=== PATIENT | female | born 1965 | race Caucasian/White ===

== ENCOUNTER 2019-04-09 10:12 | Inpatient (IN) ==
[2019-04-09] MEDS ORDERED: ACETAMINOPHEN 325 MG TAB PO PRN (12:55)
[2019-04-09] MEDS ORDERED: ONDANSETRON INJ 2 MG/ML 2 ML VIAL IV PRN ×2 (12:55→16:47)
--- NOTE | 2019-04-09 13:36 | History & Physical Report ---
Date of Service April 09, 2019 Assessment & Plan (1) Solitary right kidney: (2) ARSH (acute kidney injury): (3) Hydronephrosis: (4) UTI (urinary tract infection): -Admit to medsurg with tele secondary to sepsis described by OSH, if afebrile then can take off tele -Ceftriaxone IV, Received dose x 1 already today, continue -Pt reports multiple UTIs recently, I do not have access to records of culture results/sensitivities at this time -rechecking creatinine, OSH labs creatinine = 1.6 -Follow urine culture from OSH -Repeat blood cultures x2, follow from OSH -Urology consulted, spoke with Dr. Dong who plans to place a stent this evening -N.p.o. until after procedure -LR at 125 ml/hr -HIM consulted for CT abd/pelvis imaging results from OSH as this was not sent with records. Avoid repeating CT for now. -Will order renal U/S to eval hydronephrosis with solo kidney -Pain control with tylenol, morphine. No NSAIDs. (5) DVT prophylaxis: teds, scds, ambulatory. History of Present Illness Primary Care Provider: Elliot Shrestha This is a 54 yo F with PMHx of single kidney s/p transplant donation, multiple urinary tract infections with 5 since last fall. She presents from [facility] as a direct admission. The patient presented to OSH after acute left-sided flank pain, nausea, vomiting, headache, increased urinary frequency, burning and faint hematuria which has been going on for 2 days. She reports not having taken her temperature. Cr. is elevated at 1.6, UA with positive nitrate, positive leukocyte esterase, WBC 50-100, bacteria moderate on UA. Patient has urinated one time today. She has not eaten anything since 0300. Patient received 1 dose of IV ceftriaxone at OSH. Past Med/Surg History Medical History Solitary right kidney ARSH (acute kidney injury) UTI (urinary tract infection) Hydronephrosis Surgical History History of left nephrectomy Family History Mother , of [place]. Heart disease Hypertension Brother Nephrolithiasis Social History Preferred Language: Senegalese Communication Ability: Effective Beliefs That Will Affect Care: None Current Living Situation: Spouse Other Information That Helps Us Care for You: No Feels Safe at Home: Yes Safety Concerns: Feels Safe At This Time Smoking Status: Never smoker Hx Alcohol Use: No Hx Substance Use: No Review of Systems Review of Systems: Constitutional: + Subjective fever, sweats and chills, MCKEON Eyes: No diplopia, no worsening or blurred vision ENT: normal hearing, no trouble swallowing Respiratory: No cough, sputum, dyspnea at rest or on exertion Cardiovascular: No chest pain, tightness or palpitations Abdomen: + LLQ pain with palpation, no nausea, vomiting, diarrhea or constipation Musculoskeletal: No joint pain, calf pain, swelling Neurologic: No weakness, numbness/tingling, or balance problems Psychiatric: No anxiety or depression Skin: No rash or itch Physical Exam Physical Exam: General: awake, alert, no apparent distress Head: Normocephalic, atraumatic ENT: PERRL, EOMI, no pharyngeal exudate, mucous membranes moist Chest: Clear to auscultation, on room air, no adventitious breath sounds Cardiac: Regular rate and rhythm, no murmur, no JVD, normal peripheral pulses, good capillary refill Abdominal: NABS x 4 quadrants, soft, nondistended, no CVA tenderness, Mild +tenderness to palpation in the LLQ, no rebound, guarding or tenderness Extremities: Normal inspection, no peripheral edema or erythema, calfs nontender to palpation Psych: Normal mood and affect Neuro: AAO x 3, strength intact bilaterally and related 5/5, no motor deficits, speech is clear, no peripheral sensory deficits Code Status & VTE Plan Code Status Full Code Supervising Physician Co-Signing Physician Notes The patient was seen and examined by me and I agree with the assessment and plan done by Pastora Pickens PA-C. The patient is hemodynamically stable and does not appear septic at this time. Urology has been contacted and she will have intervention later today. Lungs are clear, heart rhythm is regular, abdomen is benign. She is alert and oriented x3 in no acute distress.
[2019-04-09] MEDS ORDERED: MoRPHine SULFATE 4 MG/ML 1 ML CARP\\VIAL IV PRN (13:38)
[2019-04-09] MEDS ORDERED: MoRPHine SULFATE 4 MG/ML 1 ML CARP\\VIAL IV STA (13:38)
[2019-04-09] MEDS ORDERED: cefTRIAXone SODIUM 1,000 MG in DEXTROSE 5% 50 ML IV SCH (13:45)
[2019-04-09 14:01] LABS: Hemoglobin 12.4 g/dL (12.0-16.0); Mean Corpuscular Hgb Conc 35.4 g/dL (32-36); Mean Platelet Volume 9.9 fL (7.4-10.4); Platelet Count 192 K/uL (130-400); RDW Coefficient of Variation 13.6 % (11.5-14.5); RDW Standard Deviation 42.9 fL (36.4-46.3); Red Blood Count 4.07 M/uL (4.2-5.4); White Blood Count 9.88 K/uL (4.8-10.8)
[2019-04-09] MEDS: LACTATED RINGER'S 1,000 ML IV SCH ×2 (14:20→21:00)
[2019-04-09 14:23] LABS: Basophils # (auto) 0.01 K/uL (0-0.2); Basophils % (auto) 0.1 %; Immature Granulocytes # (auto) 0.02 K/uL (0.00-0.02); Immature Granulocytes % (auto) 0.2 %; Monocytes # (auto) 0.62 K/uL (0.11-0.59); Monocytes % (auto) 6.3 %; Neutrophils # (auto) 8.83 K/uL (1.4-6.5); Neutrophils % (auto) 89.4 %
[2019-04-09 14:30] LABS: Albumin Level 3.3 gm/dl (3.4-5.0); BUN Creatinine Ratio 11.2 (10-20); Calcium 8.9 mg/dl (8.5-10.1); Creatinine Clr Calc Pharmacy 56.2 ml/min; Est GFR (African American) 54.2; Est GFR (Non-African American) 46.8; Potassium 3.6 mmol/L (3.5-5.1)
[2019-04-09 14:33] LABS: Albumin Globulin Ratio 0.9 (0.9-2); Bilirubin,Total 0.7 mg/dl (0.2-1); Globulin 3.7 gm/dl (2.5-4.0)
[2019-04-09] MEDS ORDERED: cefTRIAXone SODIUM 2,000 MG in DEXTROSE 5% 50 ML IV SCH (15:00)
[2019-04-09] MEDS ORDERED: IOTHALAMATE MEGLUMINE II 17.2% 250 ML VIAL ONE (15:48)
--- NOTE | 2019-04-09 16:13 | Anesthesiology Consultation ---
Date of Service April 09, 2019 Assessment & Plan (1) Encounter for pre-operative examination: Chart Review Chart Review: Acceptable Risk for Surgery and Patient NOT seen in Pre Admission Testing Consults Requested none ASA [id number] Proposed Anesthesia Anesthesia Type: General Risk / Benefits Reviewed With: PT / POA / Parent / Guardian, Accepts Plan and In formed Consent Obtained History Surgery Operation Date: 04/09/19 13:00 Proposed Procedures p Cystoscopy, Right Ureteroscopy, Laser Lithotripsy, Stent Placement - Claudio Dong MD Height/Weight Height: 5 ft 8 in Weight: 82 kg Allergies Allergy/AdvReac Type Severity Reaction Status Date / Time No Known Allergies Allergy Unverified 04/09/19 14:55 Medications Active Medications Generic Name Dose Route Start Last Admin Trade Name Freq PRN Reason Stop Dose Admin Lactated Ringer's 1,000 mls @ 125 mls/hr 04/09/19 13:00 04/09/19 14:20 Lr IV 05/09/19 12:59 125 mls/hr .Q8H JOE Administration Ondansetron HCl 4 mg 04/09/19 12:55 04/09/19 15:29 Zofran IV 05/09/19 12:54 4 mg Q4H PRN Administration Nausea And Vomiting NPO Date Last Intake of Fluids: 04/09/19 Time Last Intake of Fluids: 04:00 Date Last Intake of Solids: 04/09/19 Time Last Intake of Solids: 04:00 Past Medical History Medical History Solitary right kidney ARSH (acute kidney injury) UTI (urinary tract infection) Hydronephrosis Exercise / Class Metabolic Activity II 4-5 Yardwork/Stairs/Walk up hill Negative for chest pain or shortness of breath. Past Family History Family History Mother , of [place]. Heart disease Hypertension Brother Nephrolithiasis Past Surgical History Surgical History History of left nephrectomy Past Anesthesia History No Hx of Anesthesia Complications History of PONV No Hx of Motion Sickness and History of PONV Social History Smoking Status: Never smoker Hx Alcohol Use: No Hx Substance Use: No Review of Systems Patient denies active symptoms of GERD. Dry heaves early this morning - no vomiting. No nausea currently. Physical Exam Vital Signs Last Vital Signs Temp 37.3 C 04/09/19 16:07 Pulse 73 04/09/19 16:07 Resp 16 04/09/19 16:07 BP 123/75 04/09/19 16:07 Pulse Ox 96 04/09/19 16:07 Constitutional not obese ENMT Mouth: no TMJ abnormality and oral opening not small Thyromental Distance: > or= 3.5 Finger Breadths Mallampati Class: I Neck normal visual inspection; neck extension not limited Respiratory normal respiratory effort Auscultation: lungs clear to auscultation bilaterally Cardiovascular Rate/Rhythm: regular rate and regular rhythm Heart Sounds: no murmur Neurologic moves all extremities Motor/Sensory: no sensory deficit Psychiatric Orientation: alert and oriented x 3 Testing Laboratory Results 04/09/19 13:28 04/09/19 13:45 Electrocardiogram Date: 04/09/19 Findings: + NSR @ (68)
[2019-04-09] MEDS ORDERED: MIDAZOLAM HCL 1 MG/ML 2ML VIAL ONE (16:27)
[2019-04-09] MEDS ORDERED: fentaNYL citrate 100 MCG/2 ML VIAL ONE (16:28)
[2019-04-09] MEDS ORDERED: ATROPINE SULFATE 0.1 MG/ML 10ML SYR IV PRN (16:47)
[2019-04-09] MEDS ORDERED: ePHEDrine sulfate 50 MG/ML AMP IV PRN (16:47)
[2019-04-09] MEDS ORDERED: PROMETHAZINE HCL 12.5 MG in SODIUM CHLORIDE 0.9% 50 ML IV PRN (16:47)
--- NOTE | 2019-04-09 16:54 | Urology Consultation ---
Date of Consultation April 09, 2019 Assessment & Plan (1) Nephrolithiasis: Distal ureteral stone; right hydro - solitary kidney - cysto, URS/LL, stent now - consent on chart History of Present Illness Attending Physician: Josue Bergman MD History of Present Illness Very healthy 54-year-old female prior elective kidney donor (left) she developed right flank pain last night and into this morning and presented to the [facility] emergency room CT revealed a distal right ureteral calculus and increasing creatinine Subsequent transfer to [facility] Continues to have modest pain -creatinine 1.6 No prior history of kidney stones Excellent health overall No prior surgeries aside from her left laparoscopic nephrectomy Allergies Allergy/AdvReac Type Severity Reaction Status Date / Time No Known Allergies Allergy Unverified 04/09/19 14:55 Patient History Medical History Solitary right kidney ARSH (acute kidney injury) UTI (urinary tract infection) Hydronephrosis Surgical History History of left nephrectomy Family History Mother , of [place]. Heart disease Hypertension Brother Nephrolithiasis Social History Preferred Language: Rwandan Communication Ability: Effective Beliefs That Will Affect Care: None Current Living Situation: Spouse Other Information That Helps Us Care for You: No Feels Safe at Home: Yes Safety Concerns: Feels Safe At This Time Smoking Status: Never smoker Hx Alcohol Use: No Hx Substance Use: No Review of Systems Constitutional: as per Subjective / HPI; no fever and no chills Respiratory: no cough and no dyspnea Cardiovascular: no chest pain and no dyspnea Gastrointestinal: + abdominal pain and + nausea Genitourinary: as per Subjective / HPI Musculoskeletal: no back pain and no neck pain Integumentary: no rash Endocrine: no fatigue Physical Exam Physical Exam: NAD AAOx3 no resp distress RRR abd soft - well healed scars from prior nephrectomy - no significant R CVA tenderness - no rash no adenopathy no edema full ROM Results & Data Vital Signs (Past 12 Hours) Vital Signs Temp Pulse Resp BP Pulse Ox 04/09/19 16:07 37.3 C 73 16 123/75 96 04/09/19 15:00 36.9 C 67 18 110/66 99
[2019-04-09] MEDS ORDERED: LIDOCAINE HCL 2% 2 ML VIAL/AMP(20MG/ML) INFIL ONE (17:19)
[2019-04-09] MEDS ORDERED: DEXAMETHASONE SOD INJ 4 MG/ML VIAL ONE (17:19)
[2019-04-09] MEDS ORDERED: PROPOFOL IV EMULSION 10 MG/ML 20 ML VIAL IV ONE (17:19)
[2019-04-09] MEDS ORDERED: ONDANSETRON INJ 2 MG/ML 2 ML VIAL ONE (17:19)
--- NOTE | 2019-04-09 17:42 | Operative Report ---
Post Operative Report Pre & Post Diagnosis Operation Date: 04/09/19 13:00 Pre-Op Diagnosis: Nephrolithiasis, Hydronephrosis Post-Op Diagnosis: Nephrolithiasis, Hydronephrosis Procedure Operation Date: 04/09/19 13:00 Actual Procedures p Cystoscopy, Right Ureteroscopy, Right Stent Placement(Right) - Claudio Dong MD Surgeon Bogdan Dong MD Inventory Representative None Estimated Blood Loss 0 Findings Consistent with Post-Op Diagnosis Specimens none Description of Procedure The patient was identified in the preopertive holding area, appropriate informed consents were reviewed and completed and the patient was transferred to the operative suite. Upon arrival, appropriate antibiotics and anesthesia were administered and the patient was placed in dorsal lithotomy position and prepped and draped in sterile fashion. To be in the case, I passed a 22 Croatian cystoscope with 30 degree lens and full inspection of the bladder was conducted. Ureteral orifices were in orthotopic position. There were no tumors or other abnormalities of the bladder, there were no stones within the bladder. I turned my attention to the right ureteral orifice following my inspection. I cannulated with a sensor wire which was advanced to the kidney without difficulty. I then attempted to reenter the bladder with a semirigid ureteroscope and guided into the distal right ureter. I was able to easily navigate up the distal several centimeters of ureter until I met an area of extreme narrowing. I was not able to navigate beyond this with my scope. I did attempt to pass a second wire to further spread this area, but I was unsuccessful with a able to pass the scope over the wire. I then withdrew the scope and attempted to pass a 10 Croatian double-lumen catheter but again met resistance in this area. Given her mono nephric status, I did not think it was worth the risk of traumatizing this area through balloon dilation and instead elected to abort treatment of the stone today and simply place a stent. I presume that this location of resistance is likely the location of the stone, however, the stone was not readily visible on fluoroscopy. I did advance a 5 Croatian open-ended catheter over 1 of the remaining wires and opacify the collecting system before placing a 6 Croatian by 24 cm double-J ureteral stent. There was an excellent curl in the kidney as well as the bladder I decompressed the bladder and concluded the case. She was extubated and taken the PACU in stable condition. There were no complications. I attest to the content of the Intraoperative Record and any orders documented therein. Any exceptions are noted below.
--- NOTE | 2019-04-09 17:52 | Fluoroscopy Report ---
FL retrograde includes kub CLINICAL HISTORY: CYSTO/STENT COMPARISON STUDY: CT of the abdomen and pelvis April 09, 2019. FLUOROSCOPY TIME: 27 seconds. FLUOROSCOPIC IMAGES: 2. FINDINGS: These images demonstrate a right retrograde exam with placement of a ureteral stent. The pr oximal aspect of the stent is within the inferior right renal pelvis. A few round filling defects wit hin the right ureteropelvic junction are noted. IMPRESSION: Fluoroscopic images from right retrograde exam with ureteral stent insertion. Electronically signed by: Luis M Diggs M.D. 04/09/2019 5:51 PM
[2019-04-09] MEDS: fentaNYL citrate 100 MCG/2 ML VIAL IV PRN ×2 (18:15→18:21)
--- NOTE | 2019-04-09 18:40 | Anesthesiology Progress Note ---
Date of Service April 09, 2019 Anesthesia Post Procedure Vital Signs Vital Signs: Temp Pulse Pulse Resp BP Pulse Ox 04/09/19 18:30 36.9 C 68 58 L 16 133/78 95 04/09/19 18:20 69 58 L 14 127/77 94 04/09/19 18:10 72 58 L 14 133/84 95 04/09/19 18:00 77 58 L 17 120/78 100 04/09/19 17:50 69 58 L 9 L 121/73 100 04/09/19 17:42 36.5 C 58 L 14 115/67 99 04/09/19 16:07 37.3 C 73 16 123/75 96 04/09/19 15:00 36.9 C 67 18 110/66 99 Pain Intensity Bilateral Head: Pain Intensity: 5 Transfer of Care Handoff Completed per policy Notes Mental Status: alert / awake / arousable and participated in evaluation Patient Amnestic to Procedure: Yes Nausea / Vomiting: adequately controlled Pain: adequately controlled Airway Patency, RR, SpO2: stable & adequate BP & HR: stable & adequate Hydration State: stable & adequate Anesthetic Complications: no major complications apparent and Pt Satisfied with anesthetic care
--- NOTE | 2019-04-09 21:51 | Ultrasound Report ---
ULTRASOUND KIDNEYS AND BLADDER CLINICAL HISTORY: Right-sided hydronephrosis. COMPARISON STUDY: Abdominal CT performed the same day 04/09/2019. TECHNIQUE: Real-time, grayscale, and color flow sonography of the kidneys and bladder is performed. I mages are reviewed in the transverse and longitudinal planes. FINDINGS: Kidneys: The right kidney is normal in size and echotexture, measuring 13.1 x 5.4 x 6.7 cm. The left kidney is not identified and reported surgically absent. No abnormality is seen in the left renal fos sa. There is fullness of the right renal collecting system. No shadowing renal calculi are identified . There is no sonographic evidence of contour deforming renal mass lesion. No perinephric fluid is id entified. Bladder: The bladder is bladder is decompressed and grossly unremarkable. This contains the end of a right ureteral stent. A ureteral jet was not seen. IMPRESSION: 1. The right kidney is normal in size and there is fullness of the right renal collecting system. 2. The left kidney is surgically absent. 3. The bladder is decompressed and contains the end of a ureteral stent. Electronically signed by: Cesar Minaya M.D. 04/09/2019 9:50 PM
[2019-04-10] MEDS: LACTATED RINGER'S 1,000 ML IV SCH (05:09)
[2019-04-10 07:26] LABS: Hematocrit (blood only) 32.5 % (37-47); Hemoglobin 11.1 g/dL (12.0-16.0); Mean Corpuscular Hgb Conc 34.2 g/dL (32-36); Mean Corpuscular Volume 86.4 fL (80-100); Mean Platelet Volume 9.8 fL (7.4-10.4); Platelet Count 166 K/uL (130-400); RDW Coefficient of Variation 13.9 % (11.5-14.5); RDW Standard Deviation 44.3 fL (36.4-46.3); Red Blood Count 3.76 M/uL (4.2-5.4); White Blood Count 8.89 K/uL (4.8-10.8)
[2019-04-10 08:00] LABS: Albumin Level 2.8 gm/dl (3.4-5.0); BUN Creatinine Ratio 11.3 (10-20); Calcium 8.6 mg/dl (8.5-10.1); Creatinine Clr Calc Pharmacy 65.8 ml/min; Est GFR (African American) 65.7; Est GFR (Non-African American) 56.7; Potassium 3.8 mmol/L (3.5-5.1)
[2019-04-10 08:03] LABS: Albumin Globulin Ratio 0.8 (0.9-2); Bilirubin,Total 0.4 mg/dl (0.2-1); Globulin 3.6 gm/dl (2.5-4.0); Total Protein 6.4 gm/dl (6.4-8.2)
--- NOTE | 2019-04-10 09:43 | Urology Progress Note ---
Date of Service April 10, 2019 Assessment & Plan (1) Nephrolithiasis: [place] nephric with an obstructing ureteral calculus Stent placed yesterday, attempted ureteroscopy however there was significant narrowing of the ureter that would not allow me to bypass this with a semirigid ureteroscope We will plan to leave the stent in place for 1 week and then return after passive dilation of the ureter From my standpoint she is safe to go home today we will arrange for outpatient follow-up Subjective Postop day 1 status post right ureteral stent placement Tolerating the stent well, some frequency and urgency No hematuria Tolerating diet, no fevers or chills Review of Systems Review of Systems: All systems reviewed & are unremarkable except as noted in HPI & below Physical Exam Physical Exam: AFVSS Abdomen soft, nontender No apparent distress Awake alert oriented x3 No respiratory distress Regular rate and rhythm No edema No rashes Results & Data Vital Signs (Past 12 Hours) Vital Signs Temp Pulse Pulse Resp BP Pulse Ox 04/10/19 07:12 36.7 C 71 16 126/61 94 04/10/19 03:50 36.5 C 59 L 14 107/65 97 04/09/19 23:49 37.0 C 60 14 106/64 95 04/09/19 22:50 37.0 C 70 16 117/68 95 04/09/19 21:58 36.4 C L 75 18 127/73 98
--- NOTE | 2019-04-10 10:41 | Anesthesiology Progress Note ---
Date of Service April 10, 2019 Anesthesia Post Procedure Vital Signs Vital Signs: Temp Pulse Pulse Pulse Resp BP Pulse Ox 04/10/19 07:12 36.7 C 71 16 126/61 94 04/10/19 03:50 36.5 C 59 L 14 107/65 97 04/09/19 23:49 37.0 C 60 14 106/64 95 04/09/19 22:50 37.0 C 70 16 117/68 95 04/09/19 21:58 36.4 C L 75 18 127/73 98 04/09/19 20:58 36.4 C L 65 16 117/72 96 04/09/19 20:26 36.4 C L 77 18 129/77 95 04/09/19 19:55 37.0 C 72 18 131/80 95 04/09/19 19:30 36.9 C 71 58 L 18 145/75 H 98 04/09/19 19:20 36.9 C 68 58 L 16 114/69 96 04/09/19 19:10 36.9 C 66 58 L 16 129/76 96 04/09/19 19:00 36.9 C 64 58 L 16 129/73 97 04/09/19 18:50 36.9 C 61 58 L 14 129/80 97 04/09/19 18:40 36.9 C 64 58 L 14 127/73 95 04/09/19 18:30 36.9 C 68 58 L 16 133/78 95 04/09/19 18:20 69 58 L 14 127/77 94 04/09/19 18:10 72 58 L 14 133/84 95 04/09/19 18:00 77 58 L 17 120/78 100 04/09/19 17:50 69 58 L 9 L 121/73 100 04/09/19 17:42 36.5 C 58 L 14 115/67 99 04/09/19 16:07 37.3 C 73 16 123/75 96 04/09/19 15:00 36.9 C 67 18 110/66 99 Pain Intensity Bilateral Head: Pain Intensity: 0 Notes Mental Status: alert / awake / arousable and participated in evaluation Patient Amnestic to Procedure: Yes Nausea / Vomiting: adequately controlled Pain: adequately controlled Airway Patency, RR, SpO2: stable & adequate BP & HR: stable & adequate Hydration State: stable & adequate Anesthetic Complications: no major complications apparent and Pt Satisfied with anesthetic care
--- NOTE | 2019-04-10 13:23 | Discharge Summary ---
Date of Service April 10, 2019 Admission HPI Per Admitting Provider This is a 54 yo F with PMHx of single kidney s/p transplant donation, multiple urinary tract infections with 5 since last fall. She presents from [facility] as a direct admission. The patient presented to OSH after acute left-sided flank pain, nausea, vomiting, headache, increased urinary frequency, burning and faint hematuria which has been going on for 2 days. She reports not having taken her temperature. Cr. is elevated at 1.6, UA with positive nitrate, positive leukocyte esterase, WBC 50-100, bacteria moderate on UA. Patient has urinated one time today. She has not eaten anything since 0300. Patient received 1 dose of IV ceftriaxone at OSH. Principal Diagnosis Obstructive Uropathy Discharge Exam Constitutional WD/WN, vitals as above Respiratory normal respiratory effort, lungs clear to auscultation Cardiovascular RRR, no murmur, no edema Gastrointestinal (Abdomen) No CVA tenderness Psychiatric A+Ox3, euthymic affect Discharge Data Allergies Allergy/AdvReac Type Severity Reaction Status Date / Time No Known Allergies Allergy Unverified 04/09/19 14:55 Consultations 04/09/19 12:55 Consult Urology Routine 04/09/19 12:56 Consult Case Management - Discharge Planning Routine 04/09/19 13:07 Consult Health Information Management Stat Procedures Performed Operation Date: 04/09/19 13:00 Actual Procedures p Cystoscopy, Right Ureteroscopy, Right Stent Placement(Right) - Claudio Dong MD Ordered Studies 04/09/19 [place] retrograde includes kub Routine 04/09/19 13:36 US renal/blad retro comp Routine Hospital Course (1) Hydronephrosis: 54 y/o F transferred from [facility] where she presented with right flank pain and noted to have obstructing ureteral stone and rising creatinine Obstructive Uropathy -Urology consulted. Underwent stent placement. -Outpatient follow up with urology - plan to leave the stent in place for 1 week and then return after passive dilation of the ureter -Kept on Ceftriaxone IV -Urine culture here came back negative. -Discharged on 3 days of cipro bid. ARSH -Creatinine on admission 1.3. 1.0 on day of discharge. (2) Nephrolithiasis: (3) Solitary right kidney: (4) ARSH (acute kidney injury): Total Time Total Time Spent Total Time Spent (In Minutes): 35 Discharge Plan Discharge Items Patient Disposition: Home - Self-Care Reason For Visit: SEPSIS,NEPHROLITHIASIS,HYDROPHROSIS Discharge Diagnosis: Obstructive uropathy Discharge Goals: Improve disease control Activity: Resume your previous activity Non-emergency contact: Primary Care Provider Call non-emergency contact if: you have any medication questions and your symptoms worsen Follow-up/Referrals: Elliot Shrestha [Primary Care Provider] - Diet: Regular Addtl Provider Instructions: Follow up with urologist- Dr Dong as instructed. Prescriptions: New ciprofloxacin HCl 500 mg tablet 500 mg PO BID Qty: 6 RF: 0 Stand-Alone Forms: [place]/Other Patient Handouts: Kidney Stones Risk, Kidney Stones Prevent Discharge Orders: Discharge Order (Routine); Ordered 04/10/19 Ordered By: Denise Mchugh Admission Data Admit Date/Time: 04/09/19 12:14 Attending Provider: Denise Mchugh Admit Provider: Josue Bergman Primary Care Provider: Elliot Shrestha Other Providers: Claudio Dong ; Josue Bergman Service: Surgical Services Other [place] Date/Time DO NOT enter until pt leaves facility: 04/10/19 12:17
== END 2019-04-10 12:17 | disposition home or self-care (01) | DRG 661 ==
LOC: SUATTDRO 12:14 → 2W 12:14 → 3N 17:43